=== PATIENT | female | born 1980 | race Caucasian/White ===

== ENCOUNTER 2019-05-03 18:17 | Emergency (ER) | payer MEDICAID, SELFPAY ==
[2019-05-03 19:28] VITALS: BP 175/95; PULSE 87; RESP 18; TEMP 37; O2SAT 99; BMI 41.3
[2019-05-03 21:10] LABS: Basophils % 0.3 %; Eosinophils # 0.1 10^3/uL (0.0-0.8); Eosinophils % 0.9 %; Hematocrit 41.4 % (37.0-47.0); Hemoglobin 13.5 g/dL (11.5-15.3); Lymphocytes # 1.6 10^3/uL (0.8-4.8); Lymphocytes % 11.7 %; Mean Corpuscular HGB Conc 32.6 g/dL (30.0-36.0); Mean Corpuscular Hemoglobin 28.7 pg (28.0-34.0); Mean Corpuscular Volume 88.1 fL (81-99); Monocytes # 1.1 10^3/uL (0.2-0.9); Monocytes % 7.6 %; Neutrophils # 10.9 10^3/uL (1.8-7.7); Neutrophils % 78.8 %; Nucleated Red Blood Cells % 0 %; Platelet Count 227 10^3/cmm (130-400); Red Cell Distribution Width 13.2 % (12.1-15.1); White Blood Count 13.9 10^3/uL (4.0-10.0)
[2019-05-03 21:26] LABS: Alanine Aminotransferase 14 U/L (0-33); Albumin Level 3.7 g/dL (3.5-5.2); Alkaline Phosphatase 73 IU/L (35-105); Anion Gap 15.8 (5-19); Aspartate Amino Transferase 13 U/L (0-32); Blood Urea Nitrogen 9 mg/dL (6-20); Calcium 9.9 mg/Dl (8.6-10.0); Carbon Dioxide 22 mmol/L (22-29); Chloride 103 mmol/L (98-107); Globulin 3.5 g/dL (1.3-4.6); Glomerular Filtration Rate 136.6 mL/min (90-130); Glucose 103 mg/dL (74-109); Potassium 4.8 mmol/L (3.5-5.1); Sodium 136 mmol/L (136-145); Total Bilirubin 0.2 mg/dL (0.15-1.2); Total Protein 7.2 g/dL (6.6-8.7)
--- NOTE | 2019-05-03 22:08 | ED_ITS ---
HPI - General Adult General: Chief complaint: Nausea/Vomiting/Diarrhea Stated complaint: N/V/SORE THROAT/19 WEEKS PREG Time Seen by Provider: 05/03/19 20:21 History of Present Illness: HPI narrative: Patient complains of right ear pain and sore throat and cough times last few days. Patient 19 weeks . Said she is having a hard time keeping some fluid down. Denies any urinary frequency or problems with her . MD complaint: ear and throat pain Onset (ago): day(s) Associated symptoms: Reports nausea and vomiting; Deny chest pain, dyspnea, headache(s) or rash Review of Systems Const: Denies: fever, chills or body aches Eyes: Denies: change in vision or blurry vision ENMT: Reports: throat pain and ear pain; Denies: nasal congestion Card: Denies: chest pain or shortness of breath on exertion Resp: Denies: shortness of breath, productive cough or non-productive cough GI: Reports: abdominal pain, nausea and vomiting Musc: Denies: extremity pain Skin/Breast: Denies: rash Neuro: Denies: headache Psych: Denies: anxiety or depression Олег/Lymph: Denies: easy bruising PFSH ED PFSH: Statuses (acute, chronic, etc) shown below reflect problem list status as previously entered and may not be historically accurate Social History Smoking and tobacco status: never smoked Physical Exam Const: COMMON NORMALS: no apparent distress, average body habitus and oriented x3 HENMT: COMMON NORMALS: normocephalic HEAD & SCALP: normal to inspection and normocephalic FACE & SINUS: normal facial exam THROAT: posterior oropharynx abnormal (Redness) Eye: COMMON NORMALS: conjunctivae normal GENERAL EYE: normal appearance of both eyes CONJUNCTIVA: Yes conjunctivae normal Neck/C-Spine: COMMON NORMALS: no JVD Chest: COMMONS NORMALS: inspection of chest normal Resp: COMMON NORMALS: normal respiratory effort and clear to auscultation bilaterally AUSCULTATION: clear to auscultation bilaterally Cardio: COMMON NORMALS: no JVD, regular rate and regular rhythm RATE: regular rate RHYTHM: regular rhythm GI: COMMON NORMALS: normal to inspection, nondistended, normoactive bowel sounds Extremity: COMMON NORMALS: normal to inspection and full ROM Neuro: COMMON NORMALS: oriented x3 Course Vital Signs: Vital signs: Vital Signs Temperature 98.6 F 05/03/19 19:28 Pulse Rate 87 05/03/19 19:28 Respiratory Rate 18 05/03/19 19:28 Blood Pressure 175/95 05/03/19 19:28 Pulse Oximetry 99 05/03/19 19:28 [facility] - General Adult Lab Data: Labs: Lab Results 05/03/19 05/03/19 Range/Units 20:50 20:50 WBC 13.9 H (4.0-10.0) 10^3/ uL RBC 4.70 (4.1-5.3) 10^6/u L Hgb 13.5 (11.5-15.3) g/dL Hct 41.4 (37.0-47.0) % MCV 88.1 (81-99) fL MCH 28.7 (28.0-34.0) pg MCHC 32.6 (30.0-36.0) g/dL RDW 13.2 (12.1-15.1) % Plt Count 227 (130-400) 10^3/c mm MPV 12.0 H (7.4-10.4) fL Neut % (Auto) 78.8 % Lymph % (Auto) 11.7 % [place] % (Auto) 7.6 % Eos % (Auto) 0.9 % Baso % (Auto) 0.3 % Neut # (Auto) 10.9 H (1.8-7.7) 10^3/u L Lymph # (Auto) 1.6 (0.8-4.8) 10^3/u L Butts # (Auto) 1.1 H (0.2-0.9) 10^3/u L Eos # (Auto) 0.1 (0.0-0.8) 10^3/u L Baso # (Auto) 0.0 (0.0-0.1) 10^3/u L Nucleated RBC % (a uto) 0 % Nucleated RBCs # 0.0 /100WBC Sodium 136 (136-145) mmol/L Potassium 4.8 (3.5-5.1) mmol/L Chloride 103 (98-107) mmol/L Carbon Dioxide 22 (22-29) mmol/L Anion Gap 15.8 (5-19) BUN 9 (6-20) mg/dL Creatinine 0.5 (0.5-0.9) mg/dL GFR Calculation 136.6 H (90-130) mL/min Glucose 103 (74-109) mg/dL Calcium 9.9 (8.6-10.0) mg/Dl Total Bilirubin 0.2 (0.15-1.2) mg/dL AST 13 (0-32) U/L ALT 14 (0-33) U/L Alkaline Phosphata se 73 (35-105) IU/L Total Protein 7.2 (6.6-8.7) g/dL Albumin 3.7 (3.5-5.2) g/dL Globulin 3.5 (1.3-4.6) g/dL Coding Level of Care Code ED Executive Candidate Developer for [place]
[2019-05-03] MEDS: ondansetron 2 mg/ML SDV 2 mL 4 MG IVP (22:15)
[2019-05-03] MEDS: sodium chloride 0.9% 1,000 ML 999 ML IV (22:16)
[2019-05-03] MEDS: amoxicillin 500 mg Capsule PO (22:18)
[2019-05-03 22:42] LABS: Glucose Urine UA Norm (Normal); Ketones Urine Negative (Negative); Protein Urine Neg (Negative); Urine Appearance Hazy (CLEAR); Urine Color Yellow (Yellow); pH Urine 7 (5-7)
[2019-05-03 22:43] LABS: Add Urine Microscopic? YES; Bilirubin Urine Neg (NEGATIVE); Blood Urine Neg (Negative); Leukocyte Esterase Urine Trace (Negative); Nitrate Urine Negative (Negative); Urobilinogen Urine 1 mg/dL (Negative)
[2019-05-03 22:48] LABS: Bacteria Urine 1+; Mucus Urine TRACE; Squamous Epithelial Cell Urine 0-4 (0-5)
[2019-05-03 23:38] VITALS: PULSE 104; RESP 18; O2SAT 96
== END 2019-05-03 23:39 | disposition home or self-care (01) ==
PROVIDERS: Nurse Practitioner Family; Emergency Provider Emergency Medicine; Family Provider Pediatrics; PCP Pediatrics
DX: R11.2 Nausea with vomiting, unspecified (principal); R19.7 Diarrhea, unspecified
CPT/HCPCS: 80053; 81003; 85025; 96360; 96374; 96375; 99282; J2405; J7030

== ENCOUNTER 2019-05-08 13:52 | Outpatient (CLI) | payer MEDICAID, SELFPAY ==
--- NOTE | 2019-05-08 | US_ITS ---
WS: [id number] ULTRASOUND OB COMPLETE TECHNIQUE: Complete ultrasound. CLINICAL INFORMATION: MULTIGRAVIDA IN SECOND TRIMESTER COMPARISON: None. FINDINGS: Technically difficult examination Cervix 4.6 cm Single interuterine gestation is identified with vertex presentation. Placenta is anterior. Placenta grade 0. Normal amniotic fluid volume. cardiac activity: 156 BPM. AGA: 20 weeks 2 days MARK by ultrasound: September 23, 2019 Estimated weight: 12 ounces BDP: 4.8 cm = 20w3d HC: 17.7 cm = 20w1d AC: 15.3 cm = 20w4d FEMUR LENGTH: 3.3 cm = 20w2d Anatomic survey: Kidneys not well seen but otherwise appear normal. Intracranial contents not well evaluated. Recommen d 2-3 week follow-up for additional evaluation. Anatomic survey is otherwise normal. Normal stomach. Normal bladder. Normal 3 vessel cord. Normal 3 v essel cord insertion. Normal 4 chamber heart. Normal spine. US/US OB >= 14 weeks fetus [id number] IMPRESSION: 1. Single intrauterine with visualized cardiac activity. AGA 20 week s 2 days with MARK September 23, 2019. 2. Placenta is anterior. No evidence of abruption or previa. 3. Kidneys intracranial contents not well visualized. Recommend 2-3 week follo w-up for limited anatomy reevaluation. 4. Anatomic survey otherwise normal. 5. Normal amniotic fluid volume.
== END 2019-05-08 13:53 | disposition home or self-care (01) ==
LOC: RADOUTREAD 05-09 11:31
PROVIDERS: Family Provider Pediatrics; PCP Pediatrics; Visit Provider Family Medicine
DX: Z34.82 Encounter for supervision of other normal pregnancy, second trimester (principal)

== ENCOUNTER → 2019-05-16 12:08 | Outpatient (BNVA) | payer MEDICAID, SELFPAY | PROVIDERS: Family Provider Pediatrics; PCP Pediatrics; Visit Provider Specialist | DX: G40.309 Generalized idiopathic epilepsy and epileptic syndromes, not intractable, without status epilepticus (principal); Z87.891 Personal history of nicotine dependence | CPT/HCPCS: 99214 ==

== ENCOUNTER 2019-06-07 11:50 | Outpatient (CLI) | payer MEDICAID, SELFPAY ==
--- NOTE | 2019-06-07 | US_ITS ---
WS: [id number] ULTRASOUND OB LIMITED TECHNIQUE: Limited ultrasound examination of the fetus. CLINICAL INFORMATION: ABNORMAL US COMPARISON: May 08, 2019 FINDINGS: Cervix measures 3.5 CM. Single interuterine gestation. presentation is vertex Placental location is anterior. Placenta grade: 0. heart rate 146 BPM. Normal amniotic fluid volume. Anatomy: Limited anatomy follow-up examination. Normal kidneys. Normal spine. Normal lateral ventricl es, cerebellum, and cisterna magna today. BDP: 6.1 cm = 24w5d HC: 22.7 cm = 24w5d AC: 20.1 cm = 24w5d FEMUR LENGTH: 4.4 cm = 24w4d Estimated weight: 724 g., 51.1 %. EGA by ultrasound: 24 weeks 5 days MARK by ultrasound: 09/22/2019 US/[place] [id number] IMPRESSION: 1. Single intrauterine gestation with vertex presentation. 2. Normal amniotic fluid volume. 3. Limited follow-up anatomy examination is normal today, discussed above.
== END 2019-06-07 11:51 | disposition home or self-care (01) ==
LOC: RADOUTREAD 13:30
PROVIDERS: Family Provider Pediatrics; PCP Pediatrics; Visit Provider Family Medicine
DX: Z76.89 Persons encountering health services in other specified circumstances (principal)

== ENCOUNTER 2019-09-19 16:10 | Inpatient (IN) | payer MEDICAID, SELFPAY ==
[2019-09-19] VITALS (78 sets, daily range): BP systolic 0–176; BP diastolic 0–90; PULSE 75–115; RESP 18; TEMP 36.9–37; O2SAT 92–100; BMI 49.1
[2019-09-19 18:08] LABS: Basophils % 0.2 %; Eosinophils # 0.1 10^3/uL (0.0-0.8); Eosinophils % 0.4 %; Hematocrit 40.2 % (37.0-47.0); Hemoglobin 13.6 g/dL (11.5-15.3); Lymphocytes # 1.4 10^3/uL (0.8-4.8); Lymphocytes % 10.1 %; Mean Corpuscular HGB Conc 33.8 g/dL (30.0-36.0); Mean Corpuscular Volume 88.7 fL (81-99); Mean Platelet Volume 13.1 fL (7.4-10.4); Monocytes # 0.9 10^3/uL (0.2-0.9); Monocytes % 6.2 %; Neutrophils # 11.5 10^3/uL (1.8-7.7); Neutrophils % 82.4 %; Nucleated Red Blood Cells % 0 %; Platelet Count 167 10^3/cmm (130-400); Red Blood Count 4.53 10^6/uL (4.1-5.3); Red Cell Distribution Width 13.1 % (12.1-15.1)
[2019-09-19] MEDS: dextrose 5%-lactated ringers 1,000 ML 125 ML IV (18:31)
[2019-09-19] MEDS: oxytocin 30 UNIT/500 ML BAG IV (18:32)
[2019-09-19 19:06] LABS: Slide Review Slide Review Perform
[2019-09-19] MEDS: fentaNYL 50 mcg/mL INJ 2mL IVP (21:26)
--- NOTE | 2019-09-19 22:32 | P.ANESASSM_ITS ---
Pre-Anesthetic Assessment Pre-Anesthetic Assessment: Height/Weight: Height 1.75 m Weight 151.046 kg Temp Pulse Resp BP Pulse Ox 98.6 F 102 H 18 101/57 98 09/19/19 17:37 09/19/19 22:30 09/19/19 21:26 09/19/19 22:30 09/19/19 22:30 Preop Diagnosis: IUP Proposed Procedure: labor lumbar epidural Last intake: 0900 Social: Social History: No alcohol and No tobacco Exam: Pre-Anes Outpt Exam: alert, oriented x 3, clear to auscultation bilaterally and regular rate & rhythm Airway: Submandibular: WNL Cervical ROM: WNL MP: 2 Dentition: Full History/ROS: No significant history except as noted and No significant comp laints Pulmonary: Pulmonary: None reported CV/HEM: CV/HEM: None reported : : UTI (being treated with ABX) Hepatic: Hepatic: None reported GI: GI: GERD and None reported Neuropsych: Neuropsych: None reported Anesthetic Plan: ASA status: 2 Anesthesia: Regional (specify below) (Lumbar Epidural ) Meds/Allergies Current Medications: Current Medications Generic Name Dose Route Start Last Admin Trade Name Freq PRN Reason Stop Dose Admin Fentanyl 25 - 100 mcg 09/19/19 20:15 09/19/19 21:26 Sublimaze IVP 25 mcg Q1H PRN Administration SEVERE PAIN Dextrose/Lactated Ringer's 1,000 mls @ 125 m ls/hr 09/19/19 17:45 09/19/19 18:31 Dextrose 5%-Lact ated Ringers IV 125 mls/hr .Q8H ANGELICA Administration Oxytocin 30 unit in 500 ml s @ 1 mls/hr 09/19/19 18:00 09/19/19 18:32 Pitocin IV 1 milliunit/min .Q24H ANGELICA 1 mls/hr Administration Protocol 1 MILLIUNIT/MIN PFSH Anesthesia PFSH: Family History Other Diabetes Stroke Denies family history of CAD (coronary artery disease) Social History Smoking and tobacco status: former smoker Alcohol intake: former Female Reproductive History: : 3 Data Anesthesia CBC & Chem 7: 09/19/19 16:45 Other Labs: Laboratory Results - last 48 hr 09/19/19 16:45 WBC 14.0 H RBC 4.53 Hgb 13.6 Hct 40.2 MCV 88.7 MCH 30.0 MCHC 33.8 RDW 13.1 Plt Count 167 MPV 13.1 H Neut % (Auto) 82.4 Lymph % (Auto) 10.1 [place] % (Auto) 6.2 Eos % (Auto) 0.4 Baso % (Auto) 0.2 Neut # (Auto) 11.5 H Lymph # (Auto) 1.4 [place] # (Auto) 0.9 Eos # (Auto) 0.1 Baso # (Auto) 0.0 Nucleated RBC % (auto) 0 Nucleated RBCs # 0.0 Cardiac Studies: No Data to Display Anesthesia Procedures Date of Procedure: 09/19/19 Epidural: Time Out Performed: Yes Consents Signed: Procedure Consent Consent: from patient, risks and benefits reviewed and patient agrees to proceed Lumbar Level: L4-L5 Epidural position: sitting Epidural procedure: sterile prep of area, 1% lidocaine to numb the area (5), 18 g needle, negative for paresthesia passed, neg for paresthesia, test dose given, 1.5% xylocaine 1:200k epi (5), 0.2% Ropivacaine bolus ml (8), placed PCEA (5cc q10min x 3), no systemic response, sterile dressing applied, L.U.D. no apparent complications and 0.2% Ropiavacaine @ mls/hr (12) Additional Comments: Called to OB for epidural placement, pt eval and assessed for placement and explained procedure. Pt agrees to proceed. placed to 5cm in space and tolerated well. Bolused over 7 min. 22:23- BP 90/50. and treated with Phenylephrine and improved. nurses repositioned pt for decelerations. BP 126/66. pump stopped temporarily and restarted at 22:40. pain improved.
[2019-09-20] VITALS (44 sets, daily range): BP systolic 0–170; BP diastolic 0–90; PULSE 70–98; RESP 16–20; TEMP 36.5–36.7; O2SAT 95–97
--- NOTE | 2019-09-20 04:47 | P.HP_ITS ---
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 She had spontaneous rupture membranes at home around 3 PM on the day prior to this dictation. She came to [facility] labor and delivery with obvious ruptured membranes. At that time she was only 1 cm dilated and benjamin irregularly. Pitocin was given for augmentation at a moderate dose. She very slowly dilated throughout the evening and she began having some occasional decelerations with long contractions lasting 2 to 3 minutes. Multiple position changes and increase fluid and oxygen has helped keep heart tones reassuring. Generally, there is been great variability. However, the heart tones occasional will drop and be slow to come up. She dilated to nearly complete cervical dilatation was allowed to start pushing with pushing the anterior cervix up over the head and that was accomplished without problems. She then pushed for about an hour and 45 minutes after complete cervical dilatation and has made very little progress. The 's head is still -1 to -2 station. At this point in time, mom is very fatigued and I believe infant is higher than I would like to apply forceps or vacuum for delivery. Therefore, after discussion with the patient and spouse decision made to proceed with section. Present Details : 3 Para: 2 Review of Systems Narrative: Patient is fatigued and sore and wishes to have a section. Const: Denies: chills or body aches Card: Denies: chest pain, palpitations or dyspnea on exertion Resp: Denies: dyspnea, productive cough or non-productive cough GI: Reports: vomiting (Off and on); Denies: abdominal pain : Reports: amenorrhea and pelvic pain (She is in active labor and contra cting irregularly. She is completely dila) Musc: Reports: back pain Neuro: Reports: headache(s); Denies: weakness in extremities Psych: Denies: anxiety or depression Medications/Allergies Home Medications Medication Instructions Recorded Confirmed Last Taken Type metoclopramide HCl [Reglan] 5 mg PO QID PRN #10 tab NS 05/03/19 Unknown Rx docosahexaenoic acid 200 mg capsule mg PO 05/16/19 05/16/19 09/19/19 08:00 History folic acid 20 mg capsule 20 mg PO QDAY 05/16/19 05/16/19 09/19/19 08:00 History zonisamide 100 mg capsule 600 mg PO QDAY #180 cap 05/16/19 05/16/19 09/19/19 08:00 Rx Allergies Allergy/AdvReac Type Severity Reaction Status Date / Time aspirin Allergy ADR-Nausea Verified 09/19/19 20:12 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 PFSH: Family History Other Diabetes Stroke Denies family history of CAD (coronary artery disease) Social History Smoking and tobacco status: former smoker Alcohol intake: former Vitals/I&O/Wt Last Vital Signs Temp 97.8 F 09/20/19 03:08 Pulse 86 09/20/19 04:37 Resp 20 H 09/20/19 03:08 BP 154/79 09/20/19 04:37 Pulse Ox 100 09/19/19 23:05 09/19/19 09/19/19 09/20/19 14:59 22:59 06:59 Output Total 800 / 800 Balance -800 / -800 Weight last 48 hrs Weight 151.046 kg Physical Exam Const: COMMON NORMALS: healthy appearing and alert GENERAL APPEARANCE: cooperative and well hydrated NUTRITIONAL APPEARANCE: obese ORIENTATION/CONSCIOUSNESS: Yes awake HENMT: FACE & SINUS: normal facial exam Resp: COMMON NORMALS: normal respiratory effort, No retractions, No use of accessory muscles and clear to auscultation bilaterally Cardio: COMMON NORMALS: regular rate, regular rhythm, S1 normal heart sound present, S2 normal heart sound present and No murmurs present (Cardio) GI: COMMON NORMALS: Soft to palpation INSPECTION: Yes central obesity, Yes Abdominal panniculus present and Yes gravid abdomen : COMMON NORMALS: Yes no CVA tenderness MANUAL OB EXAM: dilated 10 cm and station -2 Back/Pelvis: COMMON NORMALS: thoracic and lumbar spine normal to inspection Extremity: COMMON NORMALS: normal to inspection, full ROM, capillary refill normal and no pedal edema Neuro: COMMON NORMALS: patient oriented x3, CN's II-XII intact bilaterally, moves all extremities, no focal motor deficits, no sensory deficits noted and deep tendon reflexes 2+ bilaterally Psych: COMMON NORMALS: mental status grossly normal, Normal thought process present, cooperative, normal affect, speech normal and activity/motor behavior normal Urinary Catheter Management^: Simon: Cath Placed During This Visit: yes Urinary Catheter Date of Insertion: 09/20/19 Urinary Catheter Time of Insertion: 00:00 Data : 09/19/19 16:45 A&P Assessment and plan (1) Spontaneous rupture of membranes: Patient had spontaneous rupture of membranes at approximately 1500 on 09/19/2019. The fluid has been clear up until the last couple of hours when we had some meconium stained fluid. Status: Acute (2) Term : Patient has a term . There is been no significant problems through her course. Maternal blood type was O+. Status: Acute (3) Failure of descent in labor, delivered, current hospitalization: Patient has not had the most reassuring heart strips and I would add no problem continuing to labor and push if she was making progress. However, the is not descending. She continues to be about -2 station and therefore, after discussion with the patient and spouse a decision has been made to proceed with section and tubal ligation. Status: Acute Attestations Medical Necessity Statement*: This patient arrived yesterday afternoon with spontaneous rupture of membranes. She has been laboring throughout the night and early this morning after becoming completely dilated we have been pushing for some time with no change in position. We have made many position changes in mother to see if that would make a difference and it has not made a difference. Also, the infant has had multiple decelerations and has begun leaking meconium stained fluid. Therefore the decision has been made to proceed with section. I expect this hospital stay to be greater than 2 midnights. Time Spent in Patient Care: Greater than 35 minutes Coding Level of Care Code Acute Lead Java Programmer for Chg Fwd Exam Comprehensive Diagnoses Spontaneous rupture of membranes Term Z34.90 Failure of descent in labor, delivered, current hospitalization O62.2
[2019-09-20] MEDS: metoclopramide 5 mg/mL SDV 2 mL 10 MG IVP (05:03)
[2019-09-20] MEDS: famotidine 20 mg/2 mL INJ IVP (05:03)
[2019-09-20] MEDS: citric acid-sodium citrate 30 mL UDC PO (05:03)
--- NOTE | 2019-09-20 06:32 | P.OP_ITS ---
Operative Report Date of procedure: September 20, 2019 Pre-op Diagnosis: Failure to progress, desire sterilization Post-op diagnosis: same Procedure Done: Low transverse section and intraoperative bilateral tubal ligation Specimens removed/disposition: 1. Male infant with Apgars of 8 and 9 and weight of 8 pounds 3 ounces 2. Placenta with a three-vessel cord delivered intact 3. Bilateral fallopian tube segments with the right segment being tagged Pathology: other (Bilateral fallopian tube segments with the right segment being tagged) Surgeon: Jb Polk Files Supervisor: Kleber Nova Anesthesia: Other (Spinal) Estimated blood loss (mL): 500 Condition: stable Disposition: floor Brief History: Refer to history and physical Procedure: The patient was brought back to the operating room where she was prepped and draped in usual sterile fashion. Anesthesia was found to be adequate. A lower transverse skin incision was then made with a #10 blade. I then dissected down to the underlying subcutaneous tissue until arriving at the prerectal fascia. The fascia was then nicked with the scalpel bilaterally. The fascial incisions were then carried laterally with Baugh scissors. Attention was then turned to the superior aspect of the incision which was grasped with kochers and tented up away from the underlying rectus abdominis muscles. The muscles were then dissected away from the fascia manually, and later with Baugh scissors. Attention was then turned to the inferior aspect of the incision, and the fascia was dissected away from the underlying muscle in similar fashion. The rectus abdominis muscles were then spread manually. The peritoneum was entered manually. Excellent visualization of the uterus was noted. A lower transverse uterine incision was then made with a #10 blade. Upon arriving at the intrauterine cavity, the uterine incision was then extended manually. The infant was noted to be in vertex position. The baby was delivered without difficulty. After delivery of the head, the mouth and nose were suctioned at the site of the incision. There was no meconium. There was no nuchal cord. The remainder of the body was then delivered and placed on the abdomen. The cord was cut and clamped. The baby was then handed to the waiting nurse. The placenta was removed intact. The uterus was externalized. The intrauterine cavity was cleansed of any remaining debris. The uterine incision was reapproximated in 2 layers. The first layer was performed with 0 Vicryl in a running locked stitch. The second layer was an imbricating stitch also using 0 Vicryl. Attention was then turned to the right fallopian tube which was ligated cut and cauterized with 0 chromic using a modified [place] technique. Attention was then turned to the left fallopian tube which was also ligated cut and cauterized in a similar fashion. I reexamined the uterine incision. Excellent hemostasis was noted. The uterus was replaced into the abdomen. The peritoneum was then irrigated with warm saline. I reexamined the uterine incision and found it to be hemostatic. The rectus abdominis muscles were then reapproximated using 0 Vicryl in a running stitch. The fascia was then reapproximated using 0 Vicryl in running stitch. The skin was reapproximated using chris. A sterile dressing was placed. All counts were correct x2. Both the mother and baby were in stable condition.
--- NOTE | 2019-09-20 07:00 | PC.NURSE ---
pt resting in bed hold infan, significant other at bedside in PACU with Kali SON
[2019-09-20 18:44] LABS: Hematocrit 37.7 % (37.0-47.0); Hemoglobin 12.4 g/dL (11.5-15.3); Mean Corpuscular HGB Conc 32.9 g/dL (30.0-36.0); Mean Corpuscular Hemoglobin 29.9 pg (28.0-34.0); Mean Corpuscular Volume 90.8 fL (81-99); Mean Platelet Volume 12.1 fL (7.4-10.4); Platelet Count 182 10^3/cmm (130-400); Red Blood Count 4.15 10^6/uL (4.1-5.3); Red Cell Distribution Width 13.2 % (12.1-15.1); White Blood Count 18.7 10^3/uL (4.0-10.0)
[2019-09-20] MEDS: docusate sodium 100 mg Capsule PO (20:47)
[2019-09-21 00:51] VITALS: BP 128/72; PULSE 77; RESP 16; TEMP 36.7; O2SAT 96
[2019-09-21 03:57] VITALS: BP 101/59; PULSE 84; RESP 16; TEMP 36.5; O2SAT 96
[2019-09-21] MEDS: prenatal vitamin Capsule 1 CAP PO (08:19)
[2019-09-21] MEDS: docusate sodium 100 mg Capsule PO (08:19)
[2019-09-21 10:37] VITALS: BP 118/75; PULSE 94; RESP 18; O2SAT 95
--- NOTE | 2019-09-21 11:32 | PM.OBGYDC ---
Discharge Providers SOCIAL SCIENCE MANAGER Date of Admission: 09/19/19 16:10 Date of Discharge: 09/21/19 Attending Provider at Admission: Kleber Nova MD Attending Provider at Discharge: Kleber Nova MD Primary Care Provider: Ambar Novoa MD Diagnoses at Discharge Discharge Diagnosis (1) Spontaneous rupture of membranes: Status: Acute (2) Term : Status: Acute (3) Failure of descent in labor, delivered, current hospitalization: Status: Acute Reason for Visit Reason for Visit: Reason For Visit: ruptured membranes Hospital Course Hospital Course: The patient presented to the hospital with spontaneous rupture of membranes. She progressed to complete under the care of Dr. Nova. He pushed with her several hours, with no descent of the baby. As result Dr. Nova contacted me to perform a . The was unremarkable. She also had a bilateral tubal ligation, and she had been to my office earlier in her to talk about the risks and alternatives. Her post operative course was unremarkable. Her bleeding was minimal. Her pain was well controlled. She passed flatus. She mobilized well. There are no concerns. Information Peripartum Data: Delivery Method: Section Physical Exam Narrative: EXAM NARRATIVE: She is in no acute distress Lungs are clear auscultation bilaterally Her heart has a regular rate and rhythm Her fundus is below the umbilicus and firm Her incision is clean dry and intact Her extremities have trace edema Urinary Catheter Management^: Simon: Cath Placed During This Visit: yes, but has since been removed by the nurse Reason for Continuing Indwelling Catheter: Other Urinary Catheter Date of Insertion: 09/20/19 Urinary Catheter Time of Insertion: 05:25 Date Urinary Catheter Removed: 09/20/19 Time Urinary Catheter Discontinued: 22:00 Discharge Data Data Completed and Pending: Completed Studies During Hospitalization Category Date Time Status Pathology: Surgic al [PTH] Routine Pth 09/20/19 07:47 Completed Labs from last 24 hours 09/20/19 18:30 WBC 18.7 H RBC 4.15 Hgb 12.4 Hct 37.7 MCV 90.8 MCH 29.9 MCHC 32.9 RDW 13.2 Plt Count 182 MPV 12.1 H Vitals: Last Vital Signs Temp 97.7 F 09/21/19 03:57 Pulse 94 09/21/19 10:37 Resp 18 05/29/20 10:37 BP 118/75 09/21/19 10:37 Pulse Ox 95 09/21/19 10:37 Discharge Plan Discharge Patient Disposition: Home, Self-Care Condition: Stable Prescriptions: New ibuprofen 800 mg Tablet 800 mg PO TID Qty: 45 RF: 0 hydrocodone-acetaminophen 5-325 mg Tablet 1 - 2 tab PO Q4H PRN (Reason: Moderate To Severe Pain) Qty: 20 RF: 0 cefdinir 300 mg capsule 300 mg PO BID 10 Days Qty: 20 RF: 0 Continued DHA 200 mg capsule PO RF: 0 folic acid 20 mg capsule 20 mg PO QDAY RF: 0 zonisamide [Zonegran] 100 mg capsule 600 mg PO QDAY Qty: 180 RF: 11 Discontinued metoclopramide HCl [Reglan] 5 mg tablet 5 mg PO QID PRN (Reason: nausea and vomiting) Qty: 10 RF: 0 Discharge Orders: Discharge Order (Routine); Ordered 09/21/19 Ordered By: Jb Polk Referrals: Kleber Nova MD [Physician] - 6 Weeks Jb Polk MD [Physician] - 4-7 days Discharge Diet: Usual diet Discharge Activity: Limit activity as instructed Discharge Attestations SOCIAL SCIENCE MANAGER Time Spent in Discharge Care*: less than 30 min Coding Level of Care Code Acute Exerciser for Chg Fwd Diagnoses Spontaneous rupture of membranes Term Z34.90 Failure of descent in labor, delivered, current hospitalization O62.2
[2019-09-21 13:45] VITALS: BP 136/88; PULSE 65; RESP 18; TEMP 36.8
[2019-09-21 15:40] VITALS: BP 136/88; PULSE 65; RESP 18; TEMP 36.8
== END 2019-09-21 14:00 | disposition home or self-care (01) | DRG 785 ==
PROVIDERS: Family Medicine; Admitting Provider Family Medicine; Family Provider Pediatrics; PCP Pediatrics; Visit Provider Family Medicine
PROC: 10D00Z1 Extraction of Products of Conception, Low, Open Approach (ICD-10-PCS; CPT 59514; principal; 2019-09-20 05:15)
DX: O64.8XX0 Obstructed labor due to other malposition and malpresentation, not applicable or unspecified (principal); Z3A.39 39 weeks gestation of pregnancy; Z37.0 Single live birth; O76 Abnormality in fetal heart rate and rhythm complicating labor and delivery; Z87.891 Personal history of nicotine dependence; O77.0 Labor and delivery complicated by meconium in amniotic fluid; Z30.2 Encounter for sterilization
CPT/HCPCS: 12345; 36415; 51702; 58611; 59025; 59409; 85025; 85027; 88302; 96374; 96375; 99211; J1885; J2274; J2405; J2590; J2765; J2795; J3010; J3490

== ENCOUNTER → 2019-11-12 09:13 | Outpatient (BNVA) | payer MEDICAID, SELFPAY | PROVIDERS: Family Provider Pediatrics; PCP Nurse Practitioner Family; Visit Provider Specialist | DX: G40.309 Generalized idiopathic epilepsy and epileptic syndromes, not intractable, without status epilepticus (principal) | CPT/HCPCS: 99213 ==

== ENCOUNTER 2020-03-14 14:40 | Outpatient (CLI) | payer MEDICAID, SELFPAY ==
--- NOTE | 2020-03-14 14:57 | MRR_ITS ---
PROCEDURE INFORMATION: Exam: MR Left Lower Extremity Joint Without Contrast, Knee Exam date and time: 03/14/2020 3:25 PM Age: 40 years old Clinical indication: Left; Patient HX: Chronic knee pain; Additional info: Left knee pain TECHNIQUE: Imaging protocol: MR of the Left lower extremity joint without contrast. Exam focused on the knee. COMPARISON: MRI Knee w/o LEFT* [id number] 06/03/2014 9:42 AM FINDINGS: Tubes, catheters and devices: There is a small fissure of the cartilage of the apex of the patella series 2, image 16 but there is no bony edema or osteochondral defect. Bones and cartilage: There is exaggerated hematopoietic marrow signal. This is most common in overweight patients in smokers. No osteochondral defect in the weight-bearing knee joint. Joint spaces: No joint effusion. Fat pads of knee: There is edema along the lateral patellofemoral joint line with trace edema in the adjacent superolateral Hoffa's fat pad which is compatible with recent or recurrent patellofemoral instability. Bursae: There is a trace amount of fluid in a Pederson's cyst. Medial meniscus: Unremarkable. No tear. Lateral meniscus: Unremarkable. No tear. 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 Posterior cruciate ligament: Unremarkable. No tear. Medial capsule and supporting structures: Unremarkable. No tear. Lateral capsule and supporting structures: Unremarkable. No tear. Extensor mechanism of knee: Unremarkable. No tear. Muscles: Unremarkable. Soft tissues: Unremarkable. MR/MR knee LT wo con* [id number] IMPRESSION: 1. 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 No osteochondral defect. 2. The ligaments and menisci are intact. There is unchanged mild mucinous degeneration of the ACL with small ganglion cysts at its insertion to the tibia..
== END 2020-03-14 14:41 | disposition home or self-care (01) ==
LOC: RADSHAW 14:46
PROVIDERS: PCP Family Medicine; Visit Provider Family Medicine
DX: M25.562 Pain in left knee (principal); G89.29 Other chronic pain; R60.0 Localized edema
CPT/HCPCS: 73721

== ENCOUNTER 2020-11-12 07:47 | Outpatient (CLI) | payer MEDICAID, SELFPAY ==
--- NOTE | 2020-11-12 08:02 | CT_ITS ---
WS: [id number] CT LUMBAR SPINE, noncontrast. HISTORY: LOW BACK PAIN TECHNIQUE: Contiguous 2.5 mm axial imaging are performed. Sagittal and coronal reformats are submitte d and reviewed. All CT scans at [facility] use at least one of these dose optimization te chniques: automated exposure control; mA and/or kV adjustment per patient size (includes targeted exa ms where dose is matched to clinical indication); or iterative reconstruction. IV contrast: None DLP: 2236.52 mGycm COMPARISON: Radiographs 11/12/2020 and prior MRI 06/03/2014 Normal lumbar alignment with no loss of disc space height or vertebral body height. Very mild hypertr ophic osteophyte formation and degenerative changes at the endplate of L1 and L2. L1-2: Normal. L2-3: Normal. L3-4: Mild disc bulging. No stenosis. L4-5: Mild annular disc bulging. Suspect there is a small central disc protrusion. Quality of this ex amination is compromised by the body habitus. Small foraminal osteophytes and annular bulge and mild widening of the facet joints. Mild foraminal stenosis. L5-S1: Shallow LEFT foraminal disc protrusion causing mild LEFT foraminal stenosis. Very minimal cont act on the LEFT L5 nerve root. Degenerative air in the SI joints. CT/CT lumbar spine wo con* [id number] IMPRESSION: 1. Quality of this examination is compromised by body habitus. 2. Mild bilateral foraminal narrowing at L4-5 with a small central disc protru adia. No significant stenosis. 3. Shallow LEFT foraminal disc protrusion at L5-S1 with minimal contact on the LEFT L5 nerve root.
--- NOTE | 2020-11-12 08:02 | XR_ITS ---
WS: [id number] Lumbar spine with flexion, extension, and neutral lateral, 11/12/2020 Clinical Data: LOW BACK PAIN Comparison: None. Findings: No compression fractures or subluxation is seen. No disc space narrowing is seen. No limitation of motion or subluxation is seen. There is minimal anterior spurring of the L1 vertebral body. XR/XR lumbar spine f/e only [id number] Impression: 1. Negative for limitation of motion or subluxation on flexion or extension. 2. Osteoarthritic spurring of L1.
== END 2020-11-12 07:48 | disposition home or self-care (01) ==
PROVIDERS: PCP Family Medicine; Visit Provider Nurse Practitioner
DX: M51.27 Other intervertebral disc displacement, lumbosacral region (principal)
CPT/HCPCS: 72120; 72131

== ENCOUNTER → 2021-03-01 16:43 | Outpatient (BNVA) | payer MEDICAID, SELFPAY | PROVIDERS: PCP Family Medicine; Visit Provider Nurse Practitioner | DX: J02.9 Acute pharyngitis, unspecified (principal) | CPT/HCPCS: 87880 ==

== ENCOUNTER 2021-07-02 07:18 | Emergency (ER) | payer MEDICAID, SELFPAY ==
[2021-07-02] VITALS (7 sets, daily range): BP systolic 90–140; BP diastolic 42–63; PULSE 77–90; RESP 14–25; TEMP 36.6; O2SAT 91–96; BMI 49.0
--- NOTE | 2021-07-02 07:34 | W.ED.SYNCOPE ---
Documented by User: ALMA Edwards 07/02/21 12:14 HPI - Syncope General: Chief Complaint: Syncope Stated Complaint: N/V/D History of Present Illness: Patient presents to the ER via ambulance with complaint of nausea and vomiting since 0 400 this morning. Patient said she had been feeling fine through this week then woke up but 0 400 vomiting. Patient called ambulance and in route patient had a vasovagal episode when she vomited blood pressure dropped and pulse rate dropped and had a near syncopal episode. Patient is feeling better now. But is still nauseous. Denies any drug ingestion, new medications or anything that she ate that could have possibly caused this. Patient says she is having urinary frequency which is unusual for her over the last couple days. Associated symptoms: Reports nausea; Deny abdominal pain, chest pain, fever(s) or headache(s) Review of Systems Const: Denies: fever(s), chills or body aches Eyes: Denies: eye discomfort ENMT: Denies: throat pain Card: Denies: chest pain Resp: Denies: dyspnea GI: Reports: nausea, vomiting, diarrhea and other (Having abdominal cramping); Denies: abdominal pain : Reports: urinary frequency and urinary urgency Skin/Breast: Denies: rash Neuro: Denies: headache(s) Psych: Denies: depression or suicidal ideation COUNTS INCLUDE 234 BEDS AT THE [facility] ED PFSH: Medical History Psychiatric care Family History Other Diabetes Stroke Denies family history of CAD (coronary artery disease) Social History Smoking and tobacco status: former smoker Alcohol intake: former History of recent travel: No Physical Exam Const: COMMON NORMALS: no acute distress, patient oriented x3 and alert HENMT: COMMON NORMALS: normocephalic and external ears normal HEAD & SCALP: normocephalic EXTERNAL EAR: Yes external ears normal Eye: COMMON NORMALS: EOMs intact bilaterally Neck/C-Spine: COMMON NORMALS: no JVD Resp: COMMON NORMALS: normal respiratory effort and No use of accessory muscles Cardio: COMMON NORMALS: no JVD GI: INSPECTION: Yes normal to inspection Extremity: COMMON NORMALS: normal to inspection and full ROM Neuro: COMMON NORMALS: patient oriented x3 SENSORIUM/ORIENTATION: Yes alert Psych: COMMON NORMALS: mental status grossly normal Skin: COMMON NORMALS: no rashes or lesions noted GENERAL SKIN EXAM: no rashes or lesions noted Course Vital Signs: Vital signs: Vital Signs Temperature 97.8 F 07/02/21 07:18 Pulse Rate 90 07/02/21 10:28 Respiratory Rate 21 H 07/02/21 10:28 Blood Pressure 108/60 07/02/21 10:28 Pulse Oximetry 91 07/02/21 10:28 MDM - Syncope Medical Decision Making Patient presented with acute onset vomiting 0 400 this morning. Patient had a vasovagal episode in the ambulance. Patient was given fluids here and responded very well. Also given morphine and Zofran. Laboratory studies were significant with a white blood cell count 22,000 whether this is from vomiting or start of infection. Chest x-ray is negative. CT showed no obstruction has some signs consider gastroenteritis she does have cholelithiasis but no acute cholecystitis does has some very mild tree-in-bud airspace duplications. Patient given scripts encourage drink plenty fluids follow-up primary care provider. Lab Data : 07/02/21 08:35 07/02/21 08:35 Radiology Impressions Chest X-Ray 07/02/21 08:22 IMPRESSION: Unremarkable portable chest. Abdomen/Pelvis CT 07/02/21 10:36 IMPRESSION: 1. Normal appendix. 2. No renal obstruction. 3. Mild fluid dilatation of the stomach, small bowel and colon. May be due to very mild gastroenteritis. No increased enhancement throughout the submucosa. 4. Cholelithiasis. Numerous stones in the gallbladder but no acute cholecystitis. 5. Very mild bilateral tree-in-bud airspace opacification at the lung bases. This can be seen with mild early changes of endobronchial pneumonia. Laboratory Results WBC 22.1 10^3/uL (4.0-10.0) H 07/02/21 08:35 RBC 5.58 10^6/uL (4.1-5.3) H 07/02/21 08:35 Hgb 15.8 g/dL (11.5-15.3) H 07/02/21 08:35 Hct 50.1 % (37.0-47.0) H 07/02/21 08:35 MCV 89.8 fl (81-99) 07/02/21 08:35 MCH 28.3 pg (28.0-34.0) 07/02/21 08:35 MCHC 31.5 g/dL (30.0-36.0) 07/02/21 08:35 RDW 13.6 % (12.1-15.1) 07/02/21 08:35 Plt Count 280 10^3/cmm (130-400) 07/02/21 08:35 MPV 11.9 fL (7.4-10.4) H 07/02/21 08:35 Neut % (Auto) 88.3 % 07/02/21 08:35 Lymph % (Auto) 3.3 % 07/02/21 08:35 [place] % (Auto) 7.2 % 07/02/21 08:35 Eos % (Auto) 0.3 % 07/02/21 08:35 Baso % (Auto) 0.2 % 07/02/21 08:35 Neut # (Auto) 19.49 10^3/uL (1.8-7.7) H 07/02/21 08:35 Lymph # (Auto) 0.7 10^3/uL (0.8-4.8) L 07/02/21 08:35 [place] # (Auto) 1.6 10^3/uL (0.2-0.9) H 07/02/21 08:35 Eos # (Auto) 0.1 10^3/uL (0.0-0.8) 07/02/21 08:35 Baso # (Auto) 0.1 10^3/uL (0.0-0.1) 07/02/21 08:35 Nucleated RBC % (auto) 0 % 07/02/21 08:35 Nucleated RBCs # 0.0 /100WBC 07/02/21 08:35 Sodium 142 mmol/L (136-145) 07/02/21 08:35 Potassium 4.0 mmol/L (3.5-5.1) 07/02/21 08:35 Chloride 105 mmol/L (98-107) 07/02/21 08:35 Carbon Dioxide 25 mmol/L (22-29) 07/02/21 08:35 Anion Gap 16.0 (5-19) 07/02/21 08:35 BUN 20 mg/dL (6-20) 07/02/21 08:35 Creatinine 1.0 mg/dL (0.5-0.9) H 07/02/21 08:35 GFR Calculation 60.8 mL/min (90-130) L 07/02/21 08:35 Glucose 115 mg/dL (65-115) 07/02/21 08:35 Calculated Osmolality 298 mOsm/kg (285-295) H 07/02/21 08:35 Calcium 9.4 mg/dL (8.5-10.5) 07/02/21 08:35 Total Bilirubin 0.5 mg/dL (0.15-1.2) 07/02/21 08:35 AST 9 U/L (0-32) 07/02/21 08:35 ALT 12 U/L (0-33) 07/02/21 08:35 Alkaline Phosphatase 77 IU/L (35-105) 07/02/21 08:35 Total Protein 6.5 g/dL (6.6-8.7) L 07/02/21 08:35 Albumin 4.1 g/dL (3.5-5.2) 07/02/21 08:35 Globulin 2.4 g/dL (1.3-4.6) 07/02/21 08:35 Lipase 18 U/L (13-60) 07/02/21 08:35 Urine Color Yellow (Yellow) 07/02/21 09:20 Urine Appearance Clear (CLEAR) 07/02/21 09:20 Urine pH 5 (5-7) 07/02/21 09:20 Ur Specific [place] 1.020 (1.005-1.030) 07/02/21 09:20 Urine Protein Trace (Negative) 07/02/21 09:20 Urine Glucose (UA) Norm (Normal) 07/02/21 09:20 Urine Ketones 1+ (Negative) H 07/02/21 09:20 Urine Blood Neg (Negative) 07/02/21 09:20 Urine Nitrate Negative (Negative) 07/02/21 09:20 Urine Bilirubin Neg (Negative) 07/02/21 09:20 Urine Urobilinogen Norm mg/dL (Negative) 07/02/21 09:20 Ur Leukocyte Esterase Negative (Negative) 07/02/21 09:20 Urine RBC None /hpf (0-2) 07/02/21 09:20 Urine WBC None /hpf (0-5) 07/02/21 09:20 Ur Squamous Epith Cells 10-15 /hpf (0-5) H 07/02/21 09:20 Amorphous Sediment Not Reportable 07/02/21 09:20 Urine Bacteria Trace /hpf (NONE) 07/02/21 09:20 Urine Mucus 1+ /hpf 07/02/21 09:20 Discharge Plan Discharge Patient Disposition: Home Clinical Impression: Gastroenteritis, Cholelithiasis, Leukocytosis Condition: Stable Prescriptions: New doxycycline hyclate 100 mg capsule 100 mg PO BID 7 Days Qty: 14 0RF Zofran 4 mg tablet 4 mg PO Q8H 3 Days Qty: 9 0RF No Action naproxen 500 mg tablet 500 mg PO TID PRN (Reason: Pain) 0RF Tylenol 8 Hour 650 mg Tablet Extended Release 650 mg PO Q8H PRN (Reason: Pain) 0RF folic acid 1 mg tablet 1 mg PO QAM 0RF ProAir HFA 90 mcg/actuation HFA aerosol inhaler 2 puff INHALATION Q4H PRN (Reason: Shortness Of Breath) 0RF Multivitamins 28 mg iron- 800 mcg Tablet 1 tab PO DAILY 0RF prednisone 10 mg tablet See Rx Instructions .ROUTE .COMPLEX 0RF Rx Instructions: take as directed -Taper dose handout from physician zonisamide 100 mg capsule 200 mg PO QAM 0RF Discharge Orders: Discharge ED (Routine); Ordered 07/02/21 Ordered By: Rad Mckee Referrals: Kleber Nova MD [Primary Care Provider] - Discharge Diet: Advance as tolerated Discharge Activity: Increase activity as tolerated Patient Instructions: Dehydration (ED), Gastroenteritis (ED) Activity Restrictions/Additional Instructions: Follow-up with medical provider as directed. Take medications as prescribed. Return to the ER or your medical provider if condition worsens. Please read and understand discharge instructions. If any questions ask please. Coding Level of Care Code ED Helpdesk Analyst for Chg Fwd Exam Comprehensive Documented by User: Avinash Felder, 07/02/21 15:49 HPI - Syncope General: Chief Complaint: Syncope Stated Complaint: N/V/D PFSH ED PFSH: Medical History Psychiatric care Family History Other Diabetes Stroke Denies family history of CAD (coronary artery disease) Social History Smoking and tobacco status: former smoker Alcohol intake: former History of recent travel: No Course Vital Signs: Vital signs: Vital Signs Temperature 97.8 F 07/02/21 07:18 Pulse Rate 90 07/02/21 10:28 Respiratory Rate 21 H 07/02/21 10:28 Blood Pressure 108/60 07/02/21 10:28 Pulse Oximetry 91 07/02/21 10:28 MDM - Syncope Medical Decision Making Patient presented with acute onset vomiting 0 400 this morning. Patient had a vasovagal episode in the ambulance. Patient was given fluids here and responded very well. Also given morphine and Zofran. Laboratory studies were significant with a white blood cell count 22,000 whether this is from vomiting or start of infection. Chest x-ray is negative. CT showed no obstruction has some signs consider gastroenteritis she does have cholelithiasis but no acute cholecystitis does has some very mild tree-in-bud airspace duplications. Patient given scripts encourage drink plenty fluids follow-up primary care provider. Chart reviewed and patient discussed with midlevel. Agree with assessment and plan. Lab Data : 07/02/21 08:35 07/02/21 08:35 Radiology Impressions Chest X-Ray 07/02/21 08:22 IMPRESSION: Unremarkable portable chest. Abdomen/Pelvis CT 07/02/21 10:36 IMPRESSION: 1. Normal appendix. 2. No renal obstruction. 3. Mild fluid dilatation of the stomach, small bowel and colon. May be due to very mild gastroenteritis. No increased enhancement throughout the submucosa. 4. Cholelithiasis. Numerous stones in the gallbladder but no acute cholecystitis. 5. Very mild bilateral tree-in-bud airspace opacification at the lung bases. This can be seen with mild early changes of endobronchial pneumonia. Laboratory Results WBC 22.1 10^3/uL (4.0-10.0) H 07/02/21 08:35 RBC 5.58 10^6/uL (4.1-5.3) H 07/02/21 08:35 Hgb 15.8 g/dL (11.5-15.3) H 07/02/21 08:35 Hct 50.1 % (37.0-47.0) H 07/02/21 08:35 MCV 89.8 fl (81-99) 07/02/21 08:35 MCH 28.3 pg (28.0-34.0) 07/02/21 08:35 MCHC 31.5 g/dL (30.0-36.0) 07/02/21 08:35 RDW 13.6 % (12.1-15.1) 07/02/21 08:35 Plt Count 280 10^3/cmm (130-400) 07/02/21 08:35 MPV 11.9 fL (7.4-10.4) H 07/02/21 08:35 Neut % (Auto) 88.3 % 07/02/21 08:35 Lymph % (Auto) 3.3 % 07/02/21 08:35 [place] % (Auto) 7.2 % 07/02/21 08:35 Eos % (Auto) 0.3 % 07/02/21 08:35 Baso % (Auto) 0.2 % 07/02/21 08:35 Neut # (Auto) 19.49 10^3/uL (1.8-7.7) H 07/02/21 08:35 Lymph # (Auto) 0.7 10^3/uL (0.8-4.8) L 07/02/21 08:35 [place] # (Auto) 1.6 10^3/uL (0.2-0.9) H 07/02/21 08:35 Eos # (Auto) 0.1 10^3/uL (0.0-0.8) 07/02/21 08:35 Baso # (Auto) 0.1 10^3/uL (0.0-0.1) 07/02/21 08:35 Nucleated RBC % (auto) 0 % 07/02/21 08:35 Nucleated RBCs # 0.0 /100WBC 07/02/21 08:35 Sodium 142 mmol/L (136-145) 07/02/21 08:35 Potassium 4.0 mmol/L (3.5-5.1) 07/02/21 08:35 Chloride 105 mmol/L (98-107) 07/02/21 08:35 Carbon Dioxide 25 mmol/L (22-29) 07/02/21 08:35 Anion Gap 16.0 (5-19) 07/02/21 08:35 BUN 20 mg/dL (6-20) 07/02/21 08:35 Creatinine 1.0 mg/dL (0.5-0.9) H 07/02/21 08:35 GFR Calculation 60.8 mL/min (90-130) L 07/02/21 08:35 Glucose 115 mg/dL (65-115) 07/02/21 08:35 Calculated Osmolality 298 mOsm/kg (285-295) H 07/02/21 08:35 Calcium 9.4 mg/dL (8.5-10.5) 07/02/21 08:35 Total Bilirubin 0.5 mg/dL (0.15-1.2) 07/02/21 08:35 AST 9 U/L (0-32) 07/02/21 08:35 ALT 12 U/L (0-33) 07/02/21 08:35 Alkaline Phosphatase 77 IU/L (35-105) 07/02/21 08:35 Total Protein 6.5 g/dL (6.6-8.7) L 07/02/21 08:35 Albumin 4.1 g/dL (3.5-5.2) 07/02/21 08:35 Globulin 2.4 g/dL (1.3-4.6) 07/02/21 08:35 Lipase 18 U/L (13-60) 07/02/21 08:35 Urine Color Yellow (Yellow) 07/02/21 09:20 Urine Appearance Clear (CLEAR) 07/02/21 09:20 Urine pH 5 (5-7) 07/02/21 09:20 Ur Specific [place] 1.020 (1.005-1.030) 07/02/21 09:20 Urine Protein Trace (Negative) 07/02/21 09:20 Urine Glucose (UA) Norm (Normal) 07/02/21 09:20 Urine Ketones 1+ (Negative) H 07/02/21 09:20 Urine Blood Neg (Negative) 07/02/21 09:20 Urine Nitrate Negative (Negative) 07/02/21 09:20 Urine Bilirubin Neg (Negative) 07/02/21 09:20 Urine Urobilinogen Norm mg/dL (Negative) 07/02/21 09:20 Ur Leukocyte Esterase Negative (Negative) 07/02/21 09:20 Urine RBC None /hpf (0-2) 07/02/21 09:20 Urine WBC None /hpf (0-5) 07/02/21 09:20 Ur Squamous Epith Cells 10-15 /hpf (0-5) H 07/02/21 09:20 Amorphous Sediment Not Reportable 07/02/21 09:20 Urine Bacteria Trace /hpf (NONE) 07/02/21 09:20 Urine Mucus 1+ /hpf 07/02/21 09:20 Discharge Plan Discharge Patient Disposition: Home Clinical Impression: Gastroenteritis, Cholelithiasis, Leukocytosis Condition: Stable Prescriptions: New doxycycline hyclate 100 mg capsule 100 mg PO BID 7 Days Qty: 14 0RF Zofran 4 mg tablet 4 mg PO Q8H 3 Days Qty: 9 0RF No Action naproxen 500 mg tablet 500 mg PO TID PRN (Reason: Pain) 0RF Tylenol 8 Hour 650 mg Tablet Extended Release 650 mg PO Q8H PRN (Reason: Pain) 0RF folic acid 1 mg tablet 1 mg PO QAM 0RF ProAir HFA 90 mcg/actuation HFA aerosol inhaler 2 puff INHALATION Q4H PRN (Reason: Shortness Of Breath) 0RF Multivitamins 28 mg iron- 800 mcg Tablet 1 tab PO DAILY 0RF prednisone 10 mg tablet See Rx Instructions .ROUTE .COMPLEX 0RF Rx Instructions: take as directed -Taper dose handout from physician zonisamide 100 mg capsule 200 mg PO QAM 0RF Discharge Orders: Discharge ED (Routine); Ordered 07/02/21 Ordered By: Rad Mckee Referrals: Kleber Nova MD [Primary Care Provider] - Discharge Diet: Advance as tolerated Discharge Activity: Increase activity as tolerated Patient Instructions: Dehydration (ED), Gastroenteritis (ED) Activity Restrictions/Additional Instructions: Follow-up with medical provider as directed. Take medications as prescribed. Return to the ER or your medical provider if condition worsens. Please read and understand discharge instructions. If any questions ask please. Coding Level of Care Code ED Helpdesk Analyst for [place] Fwd Exam Comprehensive
[2021-07-02] MEDS: ondansetron 2 mg/ML SDV 2 mL 4 MG IVP (07:48)
[2021-07-02] MEDS: sodium chloride 0.9% 1,000 ML 999 ML IV (07:51)
--- NOTE | 2021-07-02 08:22 | XR_ITS ---
WS: [id number] PORTABLE CHEST HISTORY: decreased SAo2 COMPARISON: None available. Lungs are clear and well expanded. No pleural effusion or pneumothorax. Cardiac size: Normal. Mediastinum/Aorta: Normal mediastinum. No osseous abnormality seen. XR/XR chest 1V portable [id number] IMPRESSION: Unremarkable portable chest.
[2021-07-02 09:00] LABS: Basophils # 0.1 10^3/uL (0.0-0.1); Basophils % 0.2 %; Eosinophils # 0.1 10^3/uL (0.0-0.8); Eosinophils % 0.3 %; Hematocrit 50.1 % (37.0-47.0); Hemoglobin 15.8 g/dL (11.5-15.3); Lymphocytes # 0.7 10^3/uL (0.8-4.8); Lymphocytes % 3.3 %; Mean Corpuscular HGB Conc 31.5 g/dL (30.0-36.0); Mean Corpuscular Hemoglobin 28.3 pg (28.0-34.0); Mean Corpuscular Volume 89.8 fl (81-99); Mean Platelet Volume 11.9 fL (7.4-10.4); Monocytes # 1.6 10^3/uL (0.2-0.9); Monocytes % 7.2 %; Neutrophils # 19.49 10^3/uL (1.8-7.7); Neutrophils % 88.3 %; Nucleated Red Blood Cells % 0 %; Platelet Count 280 10^3/cmm (130-400); Red Blood Count 5.58 10^6/uL (4.1-5.3); Red Cell Distribution Width 13.6 % (12.1-15.1); White Blood Count 22.1 10^3/uL (4.0-10.0)
[2021-07-02] MEDS: morphine 4 mg/mL SDV 1 mL IVP (09:12)
[2021-07-02 09:27] LABS: Alanine Aminotransferase 12 U/L (0-33); Albumin Level 4.1 g/dL (3.5-5.2); Alkaline Phosphatase 77 IU/L (35-105); Aspartate Amino Transferase 9 U/L (0-32); Blood Urea Nitrogen 20 mg/dL (6-20); Calcium 9.4 mg/dL (8.5-10.5); Carbon Dioxide 25 mmol/L (22-29); Chloride 105 mmol/L (98-107); Globulin 2.4 g/dL (1.3-4.6); Glomerular Filtration Rate 60.8 mL/min (90-130); Glucose 115 mg/dL (65-115); Lipase 18 U/L (13-60); Osmolality Calculated 298 mOsm/kg (285-295); Sodium 142 mmol/L (136-145); Total Bilirubin 0.5 mg/dL (0.15-1.2); Total Protein 6.5 g/dL (6.6-8.7)
[2021-07-02 10:20] LABS: Add Urine Microscopic? YES; Bilirubin Urine Neg (Negative); Blood Urine Neg (Negative); Glucose Urine UA Norm (Normal); Ketones Urine 1+ (Negative); Leukocyte Esterase Urine Negative (Negative); Nitrate Urine Negative (Negative); Protein Urine Trace (Negative); Urine Appearance Clear (CLEAR); Urine Color Yellow (Yellow); Urobilinogen Urine Norm (Negative); pH Urine 5 (5-7)
[2021-07-02 10:31] LABS: Add Urine Culture? No; Bacteria Urine TRACE /hpf; Mucus Urine 1+ /hpf
--- NOTE | 2021-07-02 10:36 | CT_ITS ---
WS: [id number] CT ABDOMEN AND PELVIS WITH CONTRAST HISTORY: pain, n/v/d TECHNIQUE: Imaging performed of the abdomen and pelvis with IV contrast. Single phase imaging of the abdomen. Coronal and sagittal reformats are submitted. All CT scans at [facility] use at [address] [facility] one of these dose optimization techniques: automated exposure control; mA and/or kV adjustment per patient size (includes targeted exams where dose is matched to clinical indication); or iterative re construction. IV CONTRAST: Omnipaque 300; 95 mL IV. Oral contrast: No DLP: 2034.47 mGy.cm COMPARISON: None available. Lower thorax: Mild tree-in-bud airspace disease at the lung bases, bilateral. Heart is normal size. N o hiatal hernia. Liver/biliary system: Hepatic steatosis. No bile duct dilatation. Portal vein is normally enhancing. SMV is patent. Gallbladder: Gallbladder is well distended contains numerous stones. The stones contain gas. No adjac ent inflammation. Pancreas: Normal size pancreas and pancreatic duct. No adjacent inflammation. Spleen: Normal size spleen. No mass or infarct. Adrenal glands: Normal. Right kidney: Normal. Left kidney: 8 mm hypodensity superior pole is probably a small cyst but too small to characterize co mpletely. No hydronephrosis or solid mass identified. Aorta: Normal. Limited opacification of the SMV and celiac axis. No occlusion. Lymphadenopathy: None. Free fluid: None. GI tract: Stomach is moderately distended with food products and fluid. No small bowel obstruction. T here is slight increased amount of fluid throughout the small bowel with no abnormal enhancement or o bstruction. The appendix is normal. There is mild dilatation of the colon with fluid also. No obstruc tion. No diverticulitis or diverticulosis. Abdominal wall: Unremarkable abdominal wall. No hernia. Pelvis: No free fluid or adenopathy. Uterus is normal size and anteverted. No pelvic mass. Bones: Unremarkable. CT/CT abdomen pelvis w con* [id number] IMPRESSION: 1. Normal appendix. 2. No renal obstruction. 3. Mild fluid dilatation of the stomach, small bowel and colon. May be due to very mild gastroenteritis. No increased enhancement throughout the submucosa. 4. Cholelithiasis. Numerous stones in the gallbladder but no acute cholecystit is. 5. Very mild bilateral tree-in-bud airspace opacification at the lung bases. T his can be seen with mild early changes of endobronchial pneumonia.
[2021-07-02] MEDS: iohexol 300 mg/mL 100 mL Btl IV (11:51)
== END 2021-07-02 12:37 | disposition home or self-care (01) ==
PROVIDERS: Emergency Provider Nurse Practitioner Family; PCP Family Medicine
DX: K52.9 Noninfective gastroenteritis and colitis, unspecified (principal); K80.20 Calculus of gallbladder without cholecystitis without obstruction; D72.829 Elevated white blood cell count, unspecified; Z87.891 Personal history of nicotine dependence
CPT/HCPCS: 51701; 71045; 74177; 80053; 81001; 83690; 85025; 96374; 99284; J2270; J2405; J7030; Q9967

== ENCOUNTER → 2021-07-22 12:56 | Outpatient (BNVA) | payer MEDICAID, SELFPAY | PROVIDERS: PCP Family Medicine; Visit Provider Specialist | DX: G40.309 Generalized idiopathic epilepsy and epileptic syndromes, not intractable, without status epilepticus (principal); Z87.891 Personal history of nicotine dependence | CPT/HCPCS: 99212; 99213 ==

== ENCOUNTER → 2022-07-26 11:04 | Outpatient (BNVA) | payer MEDICAID, SELFPAY | PROVIDERS: PCP Family Medicine; Visit Provider Specialist | DX: G40.309 Generalized idiopathic epilepsy and epileptic syndromes, not intractable, without status epilepticus (principal); I10 Essential (primary) hypertension; E66.01 Morbid (severe) obesity due to excess calories; Z68.42 Body mass index [BMI] 45.0-49.9, adult | CPT/HCPCS: 99213 ==

== ENCOUNTER → 2022-09-24 09:36 | Outpatient (BNVA) | payer MEDICAID, SELFPAY | PROVIDERS: PCP Family Medicine; Referring Provider Family Medicine; Visit Provider Nurse Practitioner Family | DX: M17.12 Unilateral primary osteoarthritis, left knee (principal) | CPT/HCPCS: 20610; 73560; 73565; 99213; J1100; J2795; J3301 ==

== ENCOUNTER 2022-10-25 17:28 | Emergency (ER) | payer MEDICAID, SELFPAY ==
[2022-10-25 17:44] VITALS: BP 152/91; PULSE 91; RESP 14; TEMP 36.7; O2SAT 97; BMI 45.0
--- NOTE | 2022-10-25 18:18 | W.ED.ANIMALB ---
HPI - Animal Bite General: Chief Complaint: Animal Bite Stated Complaint: Wasp sting, swelling Time Seen by Provider: 10/25/22 18:12 Source: patient Mode of arrival: ambulatory Limitations: no limitations History of Present Illness: 42-year-old female states that she was stung by a wasp this afternoon she is stung on her leg buttocks states that she had worsening redness to the area states it is painful is also very pruritic in nature. She denies any shortness of breath denies any fevers. Associated symptoms: Deny chills, fever(s) or headache(s) Review of Systems Const: Denies: fever(s) or chills Eyes: Denies: eye discomfort ENMT: Denies: throat pain or dental pain Card: Denies: chest pain Resp: Denies: dyspnea GI: Denies: abdominal pain, nausea or vomiting Musc: Denies: neck pain or back pain Skin/Breast: Reports: rash and pruritus Neuro: Denies: headache(s) PFSH ED PFSH: Family History Other Diabetes Stroke Denies family history of CAD (coronary artery disease) Social History Smoking and tobacco status: current every day smoker Alcohol intake: former Substance/Drug Use: never Physical Exam Const: COMMON NORMALS: no acute distress, patient oriented x3 and healthy appearing HENMT: COMMON NORMALS: normocephalic and atraumatic HEAD & SCALP: normocephalic and atraumatic Eye: COMMON NORMALS: conjunctivae normal CONJUNCTIVA: Yes conjunctivae normal Neck/C-Spine: COMMON NORMALS: supple Chest: COMMONS NORMALS: normal inspection of the chest and normal palpation of entire chest wall Resp: COMMON NORMALS: normal respiratory effort, No retractions, No use of accessory muscles and clear to auscultation bilaterally AUSCULTATION: clear to auscultation bilaterally Cardio: COMMON NORMALS: regular rate, regular rhythm and No murmurs present (Cardio) RATE: regular rate RHYTHM: regular rhythm GI: COMMON NORMALS: Normal to inspection, nondistended, normoactive bowel sounds present, Soft to palpation, non-tender and no masses PALPATION: Yes Soft to palpation Extremity: COMMON NORMALS: normal to inspection and full ROM Neuro: COMMON NORMALS: patient oriented x3, moves all extremities and no focal motor deficits Psych: COMMON NORMALS: mental status grossly normal, Normal thought process present and cooperative THOUGHT PROCESS: Normal thought process present Skin: NARRATIVE SKIN EXAM: While staying to arm leg and buttocks with some surrounding erythema Course Vital Signs: Vital signs: Vital Signs Temperature 98.0 F 10/25/22 17:44 Pulse Rate 91 10/25/22 17:44 Respiratory Rate 14 10/25/22 17:44 Blood Pressure 152/91 10/25/22 17:44 Pulse Oximetry 97 10/25/22 17:44 Oxygen Delivery Me thod Room Air 10/25/22 17:44 MDM - Animal Bite Medical Decision Making Patient presents here with lasting localized allergic reaction no systemic reaction patient stable for discharge we will place on Pepcid and Benadryl at home was given steroid Pepcid and Benadryl here. Discharge Plan Discharge Patient Disposition: Home Clinical Impression: Sting, wasp, Allergic reaction Condition: Stable Prescriptions: No Action naproxen 500 mg tablet 500 mg PO TID PRN (Reason: Pain) fluticasone propionate [Flonase Allergy Relief] 50 mcg/actuation spray,suspension 1 spray intranasal DAILY PRN (Reason: nasal congestion) Qty: 16 0RF Rx Instructions: administer into each nostril cetirizine [Zyrtec] 10 mg tablet 10 mg PO DAILY PRN (Reason: allergy symptoms) Qty: 60 0RF zonisamide 100 mg capsule 200 mg PO QAM Qty: 60 11RF Tylenol 8 Hour 650 mg Tablet Extended Release 650 mg PO Q8H PRN (Reason: Pain) Multivitamins 28 mg iron- 800 mcg Tablet 1 tab PO DAILY Discharge Orders: Discharge ED (Routine); Ordered 10/25/22 Ordered By: Barbara Davidson Referrals: Kleber Nova MD [Primary Care Provider] - 1-3 days Discharge Diet: Advance as tolerated Discharge Activity: Resume usual activity Patient Instructions: Insect Bite or Sting (ED) Coding Level of Care Code ED [employer] for [facility] [place]
[2022-10-25] MEDS: HYDROcodone-acetaminophen 5-325 mg Tablet 1 TAB PO (18:36)
[2022-10-25] MEDS: dexamethasone 10 mg/mL INJ IM (18:42)
[2022-10-25] MEDS: famotidine 20 mg/2 mL INJ 40 MG IM (18:43)
[2022-10-25] MEDS: diphenhydrAMINE 50 mg/mL SDV 1mL IM (18:43)
[2022-10-25 19:02] VITALS: BP 152/91; PULSE 91; RESP 14; TEMP 36.7; O2SAT 97
== END 2022-10-25 19:02 | disposition home or self-care (01) ==
PROVIDERS: Emergency Provider Emergency Medicine; PCP Family Medicine
DX: T63.461A Toxic effect of venom of wasps, accidental (unintentional), initial encounter (principal)
CPT/HCPCS: 96372; 99284; J1100; J1200; J3490

== ENCOUNTER 2023-06-03 10:38 | Outpatient (CLI) | payer MEDICAID, SELFPAY ==
--- NOTE | 2023-06-03 10:43 | MM_ITS ---
WS: [id number] BILATERAL 3D TOMOSYNTHESIS DIGITAL SCREENING MAMMOGRAPHY WITH CAD CLINICAL INFORMATION: SCREENING HISTORY: Screening mammogram. No current complaints. COMPARISON: None. TECHNIQUE: Bilateral CC and MLO views. FINDINGS: Scattered fibroglandular densities bilaterally. No suspicious focal mass, asymmetry, calcifications, or architectural distortion. No evidence of malignancy. Tiny incidental punctate calcification LEFT b reast. IMPRESSION: MM/[place] [id number] BI-RADS: 2-Benign FOLLOW UP: 1 Year Follow-up Recommend return to annual screening mammography.
== END 2023-06-03 10:39 | disposition home or self-care (01) ==
LOC: RAD 10:38
PROVIDERS: PCP Family Medicine; Visit Provider Family Medicine
DX: Z12.31 Encounter for screening mammogram for malignant neoplasm of breast (principal)
CPT/HCPCS: 77063; 77067

== ENCOUNTER → 2023-06-06 12:59 | Outpatient (BNVA) | payer MEDICAID, SELFPAY | PROVIDERS: PCP Family Medicine; Visit Provider Nurse Practitioner | DX: R09.81 Nasal congestion (principal); J40 Bronchitis, not specified as acute or chronic | CPT/HCPCS: 87400 ==

== ENCOUNTER → 2023-07-26 10:45 | Outpatient (BNVA) | payer MEDICAID, SELFPAY | PROVIDERS: PCP Family Medicine; Visit Provider Specialist | DX: G40.309 Generalized idiopathic epilepsy and epileptic syndromes, not intractable, without status epilepticus (principal) | CPT/HCPCS: 99213 ==

== ENCOUNTER → 2024-08-06 13:10 | Outpatient (BNVA) | payer MEDICAID, SELFPAY | PROVIDERS: PCP Family Medicine; Visit Provider Specialist | DX: M25.561 Pain in right knee (principal); M25.562 Pain in left knee; M17.0 Bilateral primary osteoarthritis of knee | CPT/HCPCS: 73560; 73565 ==

== ENCOUNTER 2024-08-06 14:14 | Outpatient (CLI) | payer MEDICAID, SELFPAY ==
--- NOTE | 2024-08-06 14:37 | XRR_ITS ---
PROCEDURE INFORMATION: Exam: XR Lumbosacral Spine Exam date and time: 08/06/2024 11:49 AM Age: 44 years old Clinical indication: Low back pain TECHNIQUE: Imaging protocol: Radiologic exam of the lumbosacral spine. Views: 2 or 3 views. COMPARISON: CT lumbar spine wo con* [id number] 11/12/2020 8:23 AM FINDINGS: Bones/joints: There is gentle dextroconvex curvature, apex at L2-L3. There is mild straightening of the normal lumbar lordosis. No significant subluxation. Vertebral bodies are normal in height. No acute fracture is detected. There is mild disc space narrowing at L1-L2 with endplate sclerosis and small anterior spurs. Soft tissues: Unremarkable. XR/XR lumbar spine 2-3V* [id number] IMPRESSION: 1. Gentle dextroconvex curvature, apex at L2-L3. 2. Mild straightening of the normal lumbar lordosis. 3. Mild degenerative disc disease and spondylosis at L1-L2. 4. If there is clinical concern for disc herniation or nerve root impingement, MRI may be helpful for further evaluation.
== END 2024-08-06 14:15 | disposition home or self-care (01) ==
LOC: RADOUTREAD 14:15
PROVIDERS: PCP Family Medicine; Visit Provider Family Medicine
DX: M17.0 Bilateral primary osteoarthritis of knee (principal)
CPT/HCPCS: 99204

== ENCOUNTER 2024-08-14 09:18 | Outpatient (CLI) | payer MEDICAID, SELFPAY ==
--- NOTE | 2024-08-14 09:30 | MR_ITS ---
WS: [id number] MRI LEFT KNEE HISTORY: Chronic knee pain. COMPARISON: 03/14/2020 Anterior cruciate ligament: Poorly visualized on the sagittal sequences. On the axial and coronal sequences the ACL remains predominantly intact. There is fluid in the ACL distally which probably represents a partial insertion site tear. Posterior cruciate ligament: Mild thickening but intact. Medial collateral ligament: Intact. Posterior lateral corner structures: Intact. There is a small fluid collection measuring 7 mm adjacent to the popliteus tendon. Medial menisci: Intact. Normal signal, size and shape. Lateral meniscus: Anterior horn with diffuse increased signal and small caliber. Progression of meniscal abnormality since 2019. There is additional very minimal blunting free edge of the posterior horn. Extensor mechanism: Mild tendinopathy in the distal quadriceps tendon. Fluid and soft tissue: Small suprapatellar joint effusion. Large Pederson's cyst. Osseous and articular structures: Patellofemoral compartment: Mild lateral subluxation of the patella. There is a small amount of marrow edema at the patellar eminence. Moderate narrowing of the lateral patellofemoral joint space. Mild diffuse chondromalacia laterally. Medial compartment: Minimal narrowing. Minimal fissuring of the cartilage. No fractures or marrow edema. Lateral compartment: Moderate narrowing with small marginal osteophytes and mild chondromalacia. MR/MR knee LT wo con* [id number] IMPRESSION: 1. Tricompartment degenerative joint disease. Progression of degenerative mary ges since 03/14/2020. 2. Focal interstitial tear in the distal ACL. No full-thickness tear. 3. Small ganglion or bursa along the popliteus tendon measuring 7 mm. 4. Progression signal abnormality within the anterior horn lateral meniscus co nsistent with a complex tear. Very minimal blunting free edge of the posterior horn lateral meniscus. 5. Large Pederson's cyst. 6. Mild lateral subluxation of the patella. Moderate lateral patellofemoral gaston int space narrowing with chondromalacia. 7. Moderate narrowing the lateral compartment with chondromalacia. 8. Mild narrowing of the medial compartment.
== END 2024-08-14 09:19 | disposition home or self-care (01) ==
LOC: RAD 09:19
PROVIDERS: PCP Family Medicine; Visit Provider Specialist
DX: M17.12 Unilateral primary osteoarthritis, left knee (principal); M54.9 Dorsalgia, unspecified; M47.816 Spondylosis without myelopathy or radiculopathy, lumbar region; G40.309 Generalized idiopathic epilepsy and epileptic syndromes, not intractable, without status epilepticus; S83.512A Sprain of anterior cruciate ligament of left knee, initial encounter; M71.22 Synovial cyst of popliteal space [Baker], left knee; M94.262 Chondromalacia, left knee
CPT/HCPCS: 73721; 99204

== ENCOUNTER → 2024-08-28 10:45 | Outpatient (BNVA) | payer MEDICAID, SELFPAY | PROVIDERS: PCP Family Medicine; Visit Provider Specialist | DX: G40.309 Generalized idiopathic epilepsy and epileptic syndromes, not intractable, without status epilepticus (principal) | CPT/HCPCS: 99213 ==

== ENCOUNTER → 2024-09-11 09:07 | Outpatient (BNVA) | payer MEDICAID, SELFPAY | PROVIDERS: PCP Family Medicine; Visit Provider Anesthesiology Pain Medicine | DX: M54.9 Dorsalgia, unspecified (principal); M47.816 Spondylosis without myelopathy or radiculopathy, lumbar region; G40.309 Generalized idiopathic epilepsy and epileptic syndromes, not intractable, without status epilepticus; M17.12 Unilateral primary osteoarthritis, left knee | CPT/HCPCS: 99214 ==

== ENCOUNTER → 2024-09-25 14:18 | Outpatient (BNVA) | payer MEDICAID, SELFPAY | PROVIDERS: PCP Family Medicine; Visit Provider Orthopaedic Surgery | DX: M54.9 Dorsalgia, unspecified (principal) | CPT/HCPCS: 72110; 99203 ==

== ENCOUNTER 2024-10-01 11:34 | Outpatient (CLI) | payer MEDICAID, SELFPAY ==
--- NOTE | 2024-10-01 11:45 | MR_ITS ---
WS: [id number] MRI LUMBAR SPINE NONCONTRAST TECHNIQUE: Sagittal T1, T2 and STIR imaging. Axial T1 and T2 imaging. CLINICAL INFORMATION: M54.16 - Radiculopathy, lumbar region FINDINGS: Mild lumbar curve. No acute compression. L1-L2: Normal. L2-L3: Mild annular bulging. Mild facet arthropathy. Spinal canal and foramen are patent. L3-L4: Mild annular bulging. Small LEFT foraminal protrusion. Mild LEFT foraminal narrowing. Mild facet arthropathy L4-L5: Small LEFT foraminal protrusion with a small annular fissure slightly impinges the exiting LEFT L4 nerve root. Spinal canal and RIGHT foramen are patent. Moderate facet arthropathy. L5-S1: Mild annular bulging. Tiny annular fissure. Moderate facet arthropathy. Spinal canal and foramen are patent. Visualized pelvic bony structures: Normal. Paravertebral soft tissues: Normal. Small LEFT renal cyst. MR/MR lumbar spine wo con* [id number] IMPRESSION: 1. Mild lumbar curve. No acute compression. 2. No high-grade central canal stenosis. 3. Small LEFT foraminal protrusion with a small annular fissure slightly impin ges the exiting LEFT L4 nerve root. 4. Small LEFT foraminal protrusion L3-4 with mild LEFT foraminal narrowing. 5. Mild annular bulging L5-S1 with a tiny annular fissure. 6. Moderate facet arthropathy L3-L5.
== END 2024-10-01 11:35 | disposition home or self-care (01) ==
PROVIDERS: PCP Family Medicine; Visit Provider Anesthesiology Pain Medicine
DX: M54.16 Radiculopathy, lumbar region (principal); M43.8X6 Other specified deforming dorsopathies, lumbar region; M51.26 Other intervertebral disc displacement, lumbar region; M51.A1 Intervertebral annulus fibrosus defect, small, lumbar region; M48.061 Spinal stenosis, lumbar region without neurogenic claudication; M51.379 Other intervertebral disc degeneration, lumbosacral region without mention of lumbar back pain or lower extremity pain; M47.896 Other spondylosis, lumbar region; M51.369 Other intervertebral disc degeneration, lumbar region without mention of lumbar back pain or lower extremity pain; M47.897 Other spondylosis, lumbosacral region; N28.1 Cyst of kidney, acquired
CPT/HCPCS: 72148

== ENCOUNTER → 2024-10-11 10:24 | Outpatient (BNVA) | payer MEDICAID, SELFPAY | PROVIDERS: PCP Family Medicine; Visit Provider Orthopaedic Surgery | DX: M47.816 Spondylosis without myelopathy or radiculopathy, lumbar region (principal) | CPT/HCPCS: 99214 ==

== ENCOUNTER → 2024-10-29 10:37 | Outpatient (BNVA) | payer MEDICAID, SELFPAY | PROVIDERS: PCP Family Medicine; Visit Provider Specialist | DX: M17.12 Unilateral primary osteoarthritis, left knee (principal); E66.01 Morbid (severe) obesity due to excess calories; Z68.41 Body mass index [BMI] 40.0-44.9, adult | CPT/HCPCS: 99214 ==

== ENCOUNTER → 2024-12-03 09:54 | Outpatient (BNVA) | payer MEDICAID, SELFPAY | PROVIDERS: PCP Family Medicine; Visit Provider Anesthesiology Pain Medicine | DX: M54.9 Dorsalgia, unspecified (principal); M47.816 Spondylosis without myelopathy or radiculopathy, lumbar region; G40.309 Generalized idiopathic epilepsy and epileptic syndromes, not intractable, without status epilepticus; M17.12 Unilateral primary osteoarthritis, left knee; Z87.891 Personal history of nicotine dependence | CPT/HCPCS: 99214 ==

== ENCOUNTER → 2024-12-12 08:23 | Outpatient (BNVA) | payer MEDICAID, SELFPAY | PROVIDERS: PCP Family Medicine; Visit Provider Anesthesiology Pain Medicine | DX: M54.16 Radiculopathy, lumbar region (principal) | CPT/HCPCS: 64483; 64484; J1100; J3490; J9999 ==

== ENCOUNTER → 2024-12-31 07:53 | Outpatient (BNVA) | payer MEDICAID, SELFPAY | PROVIDERS: PCP Family Medicine; Visit Provider Anesthesiology Pain Medicine | DX: M47.816 Spondylosis without myelopathy or radiculopathy, lumbar region (principal); M17.0 Bilateral primary osteoarthritis of knee | CPT/HCPCS: 99214 ==

== ENCOUNTER → 2025-01-09 08:45 | Outpatient (BNVA) | payer MEDICAID, SELFPAY | PROVIDERS: PCP Family Medicine; Visit Provider Anesthesiology Pain Medicine | DX: M17.0 Bilateral primary osteoarthritis of knee (principal); M47.816 Spondylosis without myelopathy or radiculopathy, lumbar region | CPT/HCPCS: 20610; 99214; J1010; J3490 ==